=== PATIENT | female | born 1935 | race Caucasian/White ===

== ENCOUNTER 2020-09-16 23:48 | Emergency (ER) | payer OTHER | END 2020-09-17 02:50 | disposition home or self-care (01) | LOC: ER1 23:48 | DX: M16.12 Unilateral primary osteoarthritis, left hip (principal); M17.0 Bilateral primary osteoarthritis of knee; E11.9 Type 2 diabetes mellitus without complications; Z86.73 Personal history of transient ischemic attack (TIA), and cerebral infarction without residual deficits; Z90.89 Acquired absence of other organs | CPT/HCPCS: 72040; 73502; 73564; 99283 ==